=== PATIENT | female | born 1955 | race Caucasian/White ===

== ENCOUNTER 2022-06-15 09:15 | Day surgery (SDC) | payer OTHER ==
[~2022-06-15] VITALS: Ht 157.5 cm; Wt 82.6 kg
[2022-06-15] MEDS ORDERED: LIDOCAINE 2%, 20 ML MDV ONE (12:00)
[2022-06-15] MEDS ORDERED: methylPREDNISolone ACETATE 40 MG/ML ONE (12:00)
[2022-06-15] MEDS ORDERED: NORMAL SALINE 10 ML VIAL ONE (12:00)
[2022-06-15] MEDS ORDERED: ISOVUE-300 (IOPAMIDOL) 100 ML INFUS..BTL IV ONE (12:00)
[2022-06-15] MEDS ORDERED: DIPHENHYDRAMINE INJ 50 MG/ML VIAL ONE (12:15)
[2022-06-15] MEDS ORDERED: fentaNYL CITRATE/PF 100 MCG/2 ML AMP ONE (12:16)
[2022-06-15] MEDS ORDERED: MIDAZOLAM HCL 5 MG/5 ML VIAL ONE (12:16)
[2022-06-15 15:17] VITALS: BP_SYST 132
== END 2022-06-15 13:40 | disposition home or self-care (01) ==
LOC: SMU 09:15 → SDS 09:15
PROVIDERS: ATTEND Internal Medicine
DX: M51.16 Intervertebral disc disorders with radiculopathy, lumbar region (principal); M51.9 Unspecified thoracic, thoracolumbar and lumbosacral intervertebral disc disorder; M79.10 Myalgia, unspecified site; M96.1 Postlaminectomy syndrome, not elsewhere classified; I11.0 Hypertensive heart disease with heart failure; E78.5 Hyperlipidemia, unspecified; K21.9 Gastro-esophageal reflux disease without esophagitis; I50.9 Heart failure, unspecified; Z88.5 Allergy status to narcotic agent; Z88.8 Allergy status to other drugs, medicaments and biological substances; Z79.899 Other long term (current) drug therapy; Z20.822 Contact with and (suspected) exposure to COVID-19
CPT/HCPCS: 36415; 62323; U0003; J1200; J2001; J1030; J2250; J3010; Q9967; 76000

== ENCOUNTER 2022-08-17 09:20 | Day surgery (SDC) | payer OTHER ==
[~2022-08-17] VITALS: Ht 157.5 cm; Wt 81.6 kg
[~2022-08-17 09:20] MED LIST: ISOVUE-300 (IOPAMIDOL) 100 ML INFUS..BTL IV ONE; LIDOCAINE 2%, 20 ML MDV ONE; NORMAL SALINE 10 ML VIAL ONE; methylPREDNISolone ACETATE 40 MG/ML ONE
[2022-08-17] MEDS ORDERED: fentaNYL CITRATE/PF 100 MCG/2 ML AMP ONE (12:40)
[2022-08-17] MEDS ORDERED: MIDAZOLAM HCL 5 MG/5 ML VIAL ONE (12:40)
[2022-08-17] MEDS ORDERED: DIPHENHYDRAMINE INJ 50 MG/ML VIAL ONE (12:41)
[2022-08-17 14:37] VITALS: BP_SYST 116
== END 2022-08-17 14:30 | disposition home or self-care (01) ==
LOC: SDS 09:20 → SMU 09:23 → SDS 14:30
PROVIDERS: ATTEND Internal Medicine
DX: M43.22 Fusion of spine, cervical region (principal); E78.5 Hyperlipidemia, unspecified; K21.9 Gastro-esophageal reflux disease without esophagitis; I11.0 Hypertensive heart disease with heart failure; I50.9 Heart failure, unspecified; Z88.5 Allergy status to narcotic agent; Z88.8 Allergy status to other drugs, medicaments and biological substances; Z79.899 Other long term (current) drug therapy
CPT/HCPCS: 62321; 87426; 36415; J1200; J2001; J1030; J2250; J3010; Q9967; 76000

== ENCOUNTER 2023-02-22 08:22 | Day surgery (SDC) | payer OTHER ==
[~2023-02-22] VITALS: Ht 157.5 cm; Wt 83.9 kg
[2023-02-22] MEDS ORDERED: ONDANSETRON HCL 4 MG/2 ML VIAL ONE (08:54)
[2023-02-22] MEDS ORDERED: fentaNYL CITRATE/PF 100 MCG/2 ML AMP ONE (08:54)
[2023-02-22] MEDS ORDERED: MIDAZOLAM HCL 5 MG/5 ML VIAL ONE (08:55)
[2023-02-22] MEDS ORDERED: NORMAL SALINE 10 ML VIAL ONE (09:00)
[2023-02-22] MEDS ORDERED: LIDOCAINE 2%, 20 ML MDV ONE (09:00)
[2023-02-22] MEDS ORDERED: methylPREDNISolone ACETATE 40 MG/ML ONE (09:00)
[2023-02-22] MEDS: DIPHENHYDRAMINE INJ 50 MG/ML VIAL ONE ×2 (10:23→10:25)
[2023-02-22 13:32] VITALS: O2SAT 98
[2023-02-22 13:49] VITALS: BP_SYST 178; PULSE 56; RESP 16
== END 2023-02-22 12:45 | disposition home or self-care (01) ==
LOC: SDS 08:22 → SMU 08:25 → SDS 12:45
PROVIDERS: ATTEND Internal Medicine
DX: M51.16 Intervertebral disc disorders with radiculopathy, lumbar region (principal); M96.1 Postlaminectomy syndrome, not elsewhere classified; M79.10 Myalgia, unspecified site; I11.0 Hypertensive heart disease with heart failure; I50.9 Heart failure, unspecified; E78.5 Hyperlipidemia, unspecified; K21.9 Gastro-esophageal reflux disease without esophagitis; Z98.1 Arthrodesis status; Z88.5 Allergy status to narcotic agent; Z88.8 Allergy status to other drugs, medicaments and biological substances; Z79.899 Other long term (current) drug therapy
CPT/HCPCS: 62323; J1200; J2001; J1030; J2250; J3010; 76000; J2405